=== PATIENT | male | born 1965 | race Native Hawaiian/Other Pacific Islander ===

== ENCOUNTER 2016-08-20 08:49 | Emergency (ER) | payer OTHER ==
[~2016-08-20] VITALS: Ht 170.2 cm; Wt 95.3 kg
[2016-08-20 09:06] LABS: PLATELET COUNT 203 K/uL (142-355)
[2016-08-20 09:11] LABS: POTASSIUM 4.2 mmol/L (3.6-5.2); SODIUM 135 mmol/L (136-145)
[2016-08-20 09:33] LABS: PARTIAL THROMBOPLASTIN TIME 24.1 SECONDS (24.5-33.6)
[2016-08-20 10:43] VITALS: BP 128/81; TEMP 97.6
== END 2016-08-20 10:43 | disposition home or self-care (01) ==
LOC: ED 08:49
DX: R07.89 Other chest pain (principal); K44.9 Diaphragmatic hernia without obstruction or gangrene; R00.1 Bradycardia, unspecified
CPT/HCPCS: 36415; 80053; 80307; 81000; 82550; 84484; 85027; 85610; 85730; 86318; 93005; 96374; 99284; G0479; J2270

== ENCOUNTER 2016-09-20 16:16 | Emergency (ER) | payer OTHER ==
[~2016-09-20] VITALS: Ht 170.2 cm; Wt 95.3 kg
[2016-09-20 16:33] LABS: PLATELET COUNT 236 K/uL (142-355)
[2016-09-20] MEDS ORDERED: CETI10TA PO (16:33)
[2016-09-20] MEDS ORDERED: OMEP20CA PO (16:33)
[2016-09-20] MEDS ORDERED: WAL-PROFEN200 M1 OR (16:34)
[2016-09-20] MEDS ORDERED: ASPIRIN 81 LOW81 MG PO (16:35)
[2016-09-20] MEDS ORDERED: NITROGLYCERIN0.4 MG SL (16:35)
[2016-09-20] MEDS ORDERED: ISOS30TA17 PO (16:35)
[2016-09-20] MEDS ORDERED: PAXIL40 MG PO (16:36)
[2016-09-20] MEDS ORDERED: ABILIFY20 MG OR (16:36)
[2016-09-20 16:39] LABS: POTASSIUM 3.9 mmol/L (3.6-5.2); SODIUM 133 mmol/L (136-145)
[2016-09-21 01:52] VITALS: BP 120/69; TEMP 98.1
== END 2016-09-21 02:00 ==
LOC: ED 16:16
PROVIDERS: Family Medicine
DX: T14.91 Suicide attempt (principal); T46.3X2A Poisoning by coronary vasodilators, intentional self-harm, initial encounter; T50.992A Poisoning by other drugs, medicaments and biological substances, intentional self-harm, initial encounter; R00.0 Tachycardia, unspecified
CPT/HCPCS: 36415; 80053; 80329; 82550; 84484; 85027; 93005; 96360; 96361; 99284

== ENCOUNTER 2016-09-21 02:51 | Emergency (ER) | payer OTHER ==
[~2016-09-21] VITALS: Ht 170.2 cm; Wt 95.3 kg
[~2016-09-21 02:51] MED LIST: ABILIFY20 MG OR; ASPIRIN 81 LOW81 MG PO; CETI10TA PO; ISOS30TA17 PO; NITROGLYCERIN0.4 MG SL; OMEP20CA PO; PAXIL40 MG PO; WAL-PROFEN200 M1 OR
[2016-09-21 03:43] LABS: PLATELET COUNT 198 K/uL (142-355)
[2016-09-21 03:50] LABS: POTASSIUM 4.2 mmol/L (3.6-5.2); SODIUM 137 mmol/L (136-145)
[2016-09-21 03:57] LABS: PARTIAL THROMBOPLASTIN TIME 22.3 SECONDS (24.5-33.6)
[2016-09-21 06:26] VITALS: BP 125/77; TEMP 98
== END 2016-09-21 06:35 ==
LOC: ED 02:51
PROVIDERS: Family Medicine
DX: F32.89 Other specified depressive episodes (principal); F41.0 Panic disorder [episodic paroxysmal anxiety]; S16.1XXA Strain of muscle, fascia and tendon at neck level, initial encounter; R51 Headache; T50.902A Poisoning by unspecified drugs, medicaments and biological substances, intentional self-harm, initial encounter
CPT/HCPCS: 36415; 80053; 82550; 84484; 85027; 85610; 85730; 93005; 99283